=== PATIENT | male | born 1990 | race Caucasian/White ===

== ENCOUNTER 2016-09-08 17:04 | Emergency (ER) | payer OTHER ==
--- NOTE | 2016-09-08 18:55 | CT ---
CT OF FACIAL BONES NONCONTRAST 09/08/16 CLINICAL HISTORY: Facial pain, new onset. FINDINGS: There is metallic ornamentation overlying the lateral aspect of the right orbit which produces strea k artifact limiting detail. The orbital ruby are intact. There is no retrobulbar mass effect or hem atoma. Temporomandibular joints maintain appropriate alignment. No acute fracture of either zygomati c arch. Pterygoid plates are intact. There is added density of the right buccal region which may rel ate to accessory parotid tissue. IMPRESSION: No acute facial bone abnormality. [place]: [facility] [place]
== END 2016-09-08 19:20 | disposition home or self-care (01) ==
LOC: MADERS 17:04
DX: S00.83XA Contusion of other part of head, initial encounter (principal); X58.XXXA Exposure to other specified factors, initial encounter
CPT/HCPCS: 70486